=== PATIENT | male | born 1965 | race Caucasian/White ===

== ENCOUNTER 2021-11-05 16:43 | Emergency (ER) | payer OTHER, SELFPAY ==
--- NOTE | 2021-11-05 16:52 | ED.SKABFB ---
HPI - Skin/Abscess/Foreign Bdy General Chief complaint: Skin/Abscess/Foreign Body Stated complaint: stung by bee Time Seen by Provider: 11/05/21 16:54 Source: patient and RN notes reviewed Mode of arrival: ambulatory Limitations: no limitations History of Present Illness HPI narrative: 55-year-old male presents to the [facility] with complaints of being stung by a bee this am. Since being stung around 8am the area has swollen and become red. Patient states that he was riding his bike, stinger not present. Wound to the anterior portion of the shoulder. patient has taken Benadryl at about 1:00 today. Patient denies any trouble breathing, no facial, tongue or lip swelling. No chest pain or abdominal pain. Related Data Home Medications Medication Instructions Recorded Confirmed doxycycline monohydrate 40 mg 40 mg PO DIRECTED 11/05/21 11/05/21 capsule,immediate - delay release (Oracea) metronidazole 0.75 % topical gel 0.75 applic topical DIRECTED 11/05/21 11/05/21 Allergies Allergy/AdvReac Type Severity Reaction Status Date / Time No Known Allergies Allergy Verified 11/05/21 16:48 Review of Systems Review of Systems: All systems reviewed & are unremarkable except as noted in HPI and below Constitutional: Constitutional: Reports no additional constitutional complaints, Denies chills and Denies fever(s) Eyes: Eyes: Reports no additional eye complaints ENT: Reports system reviewed and no additional complaints, except as documented Cardiovascular: Cardiovascular: Reports no additional cardiovascular complaints Respiratory: Respiratory: Reports no additional respiratory complaints Gastrointestinal: Gastrointestinal: Reports no additional gastrointestinal complaints Musculoskeletal: Musculoskeletal: Reports no additional musculoskeletal complaints Integumentary/Breasts: Skin/Breast: Reports as per HPI and Reports erythema (Left upper arm) Neurologic: Reports system reviewed and no additional complaints, except as documented Psychiatric: Psychiatric: Reports no additional psychiatric complaints Allergic/Immunologic: Allergic/Immunologic: Reports no additional allergic/immunologic complaints [facility] Past Medical History Medical History (Updated 11/05/21 @ 19:06 by Radha Rutherford APRN) Rosacea Surgical History Surgical History H/O colonoscopy rectal polyp/ dr. carmona/ 01-22-19/ repeat in 5 yrs Family History Family History Other No family history of cardiovascular disease Social History Social History Alcohol intake: current Comments At the time of my signature, I reviewed and agree with the nursing past medical, surgical, social, and family history. There is no relevant family history pertinent to the patient complaint. Exam Const: General: healthy appearing, no acute distress and alert Nutritional Appearance: well nourished Orientation/consciousness: patient oriented x3 Limitations: no limitations HENMT: Head: normal to inspection Ears: external ears normal General nose exam: Normal external nose present Mouth: Yes Normal oral and palatal mucosa present, Yes lip normal and Yes moist mucous membranes Eyes: General: appearance normal, both eyes and all related structures Pupils: Equal, round and reactive pupils present Neck: Neck: normal visual inspection, no lymphadenopathy and no meningeal signs Chest: Chest palpation & inspection: normal inspection of the chest Resp: Effort & Inspection: normal respiratory effort and no use of accessory muscles Auscultation: clear to auscultation bilaterally, no crackles, no rales, no rhonchi and no wheezes Cardio: Rate: regular rate Rhythm: regular rhythm GI: GI Palp: Yes Soft to palpation and No Tenderness to palpation present (GI) Back/Spine/Pelvis: Cervical Spine: norm
[2021-11-05 16:54] VITALS: BP 98/71; PULSE 66; RESP 14; TEMP 37.3; O2SAT 99
[2021-11-05] MEDS: FAMOTIDINE 20 MG TABLET PO (17:05)
[2021-11-05] MEDS: predniSONE 20 MG TABLET 60 MG PO (17:05)
== END 2021-11-05 17:27 | disposition home or self-care (01) ==
PROVIDERS: Emergency Provider Nurse Practitioner; PCP Family Medicine
DX: T63.441A Toxic effect of venom of bees, accidental (unintentional), initial encounter (principal); E78.00 Pure hypercholesterolemia, unspecified
CPT/HCPCS: 99213; A9270; G0463; J7512

== ENCOUNTER 2022-03-22 08:44 | Outpatient (CLI) | payer OTHER, SELFPAY ==
[2022-03-22 18:29] LABS: Alanine Aminotransferase 27 U/L (6-50); Albumin Level 4.5 g/dL (3.5-5.1); Alkaline Phosphatase 53 U/L (38-126); Anion Gap 5 mmol/L (8-16); Aspartate Amino Transferase 46 U/L (17-59); Blood Urea Nitrogen 22 mg/dL (9-20); Calcium 9.5 mg/dL (8.4-10.2); Carbon Dioxide 31 mmol/L (22-30); Chloride 104 mmol/L (98-107); Cholesterol 236 mg/dL (0-200); Estimated Glomerular Filt Rate > 60; Glucose 94 mg/dL (65-110); HDL Direct 55 mg/dL; Potassium 5.4 mmol/L (3.4-5.0); Sodium 140 mmol/L (137-145); Triglycerides 175 mg/dL (<150)
[2022-03-22 18:41] LABS: LDL Cholesterol Direct 110 mg/dL
[2022-03-22 18:58] LABS: Prostate Specific Antigen 0.5 ng/mL (< OR = 4.0)
== END 2022-03-22 08:45 | disposition home or self-care (01) ==
LOC: ANHGOSHLAB 08:47
PROVIDERS: PCP Family Medicine; Visit Provider Family Medicine
DX: E78.2 Mixed hyperlipidemia (principal); Z00.8 Encounter for other general examination; Z12.5 Encounter for screening for malignant neoplasm of prostate
CPT/HCPCS: 36415; 80053; 80061; 84153; G0103

== ENCOUNTER 2023-07-04 08:20 | Outpatient (CLI) | payer OTHER, SELFPAY ==
[2023-07-04 13:15] LABS: Alanine Aminotransferase 22 U/L (6-50); Albumin Level 4.7 g/dL (3.5-5.1); Alkaline Phosphatase 58 U/L (38-126); Anion Gap 7 mmol/L (4-12); Aspartate Amino Transferase 42 U/L (17-59); Bilirubin,Total 0.7 mg/dL (0.2-1.3); Blood Urea Nitrogen 29 mg/dL (9-20); Calcium 9.9 mg/dL (8.4-10.2); Carbon Dioxide 28 mmol/L (22-30); Chloride 105 mmol/L (98-107); Cholesterol 217 mg/dL (0-200); Estimated Glomerular Filt Rate > 60; Glucose 104 mg/dL (65-110); HDL Direct 58 mg/dL; Potassium 4.9 mmol/L (3.4-5.0); Sodium 140 mmol/L (137-145); Triglycerides 100 mg/dL (<150)
[2023-07-04 13:27] LABS: LDL Cholesterol Direct 128 mg/dL
[2023-07-04 13:43] LABS: Prostate Specific Antigen 0.6 ng/mL (< OR = 4.0)
== END 2023-07-04 08:21 | disposition home or self-care (01) ==
LOC: ANHGOSHLAB 08:21
PROVIDERS: PCP Family Medicine; Visit Provider Family Medicine
DX: E78.2 Mixed hyperlipidemia (principal); Z12.5 Encounter for screening for malignant neoplasm of prostate; Z00.8 Encounter for other general examination
CPT/HCPCS: 36415; 80053; 80061; 84153; G0103

== ENCOUNTER 2024-05-21 08:53 | Outpatient (CLI) | payer OTHER, SELFPAY ==
--- OUTSIDE RECORDS SUMMARY | 2024-05-21 09:33 | XMS_ITS | Referral Summary ---
Author Organization [facility] Address [address] [place] [address] Care Team Providers Care Armament Installer Name Role Phone Kishore Arellano MD Primary Care Provider [phone] [phone] Allergies No known active allergies Medications ketoconazole (NIZORAL) 2 % creamIndications :Tinea cruris Apply topically 2 (two) times a day as needed (for rash on thigh) 30 g 11 3 Active doxycycline (ORACEA) 40 mg capsuleIndicatio ns:Rosacea, unspecified Take 1 capsule (40 mg total) by mouth every morning 30 capsule 11 4 Active azelaic acid 15 % gelIndications:A cne Rosacea Apply 1 applicator topically 2 (two) times a day After skin is thoroughly washed and patted dry, gently but thoroughly massage a thin film of azelaic acid cream into the affected area twice daily, in the morning and evening. 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
--- OUTSIDE RECORDS SUMMARY | 2024-05-21 09:33 | XMS_ITS | Clinical Summary ---
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 Gender Identity Male 09/07/2022 1:05 PM CDT Sexual Orientation Straight 09/07/2022 1: 05 PM CDT Obstetrics History Plan of Treatment Health Maintenance Due Date Last Done Comments Colon Cancer Screening-Colonoscopy 1965 Depression Screening 1965 Hepatitis C Screening 1965 Prostate Cancer Screening-PSA 1965 Hepatitis B Screening 11/22/1983 Regular Well Visit/Exam 18-64 11/22/1983 Zoster Vaccine (1 of 2) 11/22/2015 Covid-19 Vaccine (3 - 2023-2 5 season) 2023 07/20/2020, 06/28/2020 Influenza Vaccine (#1) 2023 , 03/11/2020, 12/12/2018 DTaP/Tdap/Td Vaccine (2 - Td or Tdap) 12/12/2028 12/12/2018 Pneumococcal vaccine <65 Aged Out No longer eligible based on patient's age to complete this topic Insurance [facility] OPTIONS PPO Care Teams General Merchandise Manager Relationship Specialty Start Date End Date Kishore Arellano MD PCP - General Family Medicine 02/06/19
[2024-05-21 10:39] LABS: Basophils Percent Auto 0.7 % (0.2-1.2); Eosinophils Absolute Auto 0.4 K/mm3 (0-0.3); Eosinophils Percent Auto 5.8 % (0-4.4); Hematocrit 42.1 % (42.0-52.0); Hemoglobin 13.7 g/dL (14.0-18.0); Immature Granulocyte Absolute 0.01 K/mm3 (0.00-0.031); Immature Granulocyte Percent A 0.2 % (0-0.5); Lymphocytes Percent Auto 44.6 % (18.3-44.2); Mean Corpuscular HGB Conc 32.5 g/dl (32-36); Mean Corpuscular Hemoglobin 30.7 pg (26-34); Mean Corpuscular Volume 94.4 fl (80-100); Mean Platelet Volume 9.7 fl (7.4-10.4); Monocytes Absolute Auto 0.6 K/mm3 (0.1-0.6); Monocytes Percent Auto 9.4 % (2.6-8.5); Neutrophils Absolute Auto 2.4 K/mm3 (1.3-6.7); Neutrophils Percent Auto 39.3 % (45.5-73.1); Platelet Count Result 178 k/mm3 (150-375); Red Blood Count 4.46 M/mm3 (4.6-6.20); Red Cell Distribution Width 12.4 % (11.5-14.5); White Blood Count 6.1 K/mm3 (4.5-10.0)
[2024-05-21 12:03] LABS: Alanine Aminotransferase 31 U/L (6-50); Albumin Level 4.4 g/dL (3.5-5.1); Alkaline Phosphatase 51 U/L (38-126); Anion Gap 9 mmol/L (4-12); Aspartate Amino Transferase 43 U/L (17-59); Bilirubin,Total 0.9 mg/dL (0.2-1.3); Blood Urea Nitrogen 20 mg/dL (9-20); Calcium 9.4 mg/dL (8.4-10.2); Carbon Dioxide 28 mmol/L (22-30); Chloride 103 mmol/L (98-107); Cholesterol 252 mg/dL (0-200); Estimated Glomerular Filt Rate > 60; Glucose 92 mg/dL (65-110); HDL Direct 61 mg/dL; Potassium 4.4 mmol/L (3.4-5.0); Sodium 140 mmol/L (137-145); Triglycerides 102 mg/dL (<150)
[2024-05-21 12:14] LABS: LDL Cholesterol Direct 131 mg/dL
[2024-05-21 12:32] LABS: Prostate Specific Antigen 0.6 ng/mL (< OR = 4.0)
== END 2024-05-21 08:54 | disposition home or self-care (01) ==
LOC: ANHGOSHLAB 08:56
PROVIDERS: PCP Family Medicine; Visit Provider Family Medicine
DX: Z12.5 Encounter for screening for malignant neoplasm of prostate (principal); Z00.00 Encounter for general adult medical examination without abnormal findings
CPT/HCPCS: 36415; 80053; 80061; 84153; 85025; G0103

== ENCOUNTER 2024-06-20 10:58 | Outpatient (CLI) | payer OTHER, SELFPAY ==
--- OUTSIDE RECORDS SUMMARY | 2024-06-20 12:03 | XMS_ITS | Referral Summary ---
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
--- OUTSIDE RECORDS SUMMARY | 2024-06-20 12:03 | XMS_ITS | Clinical Summary ---
Author Organization [facility] Address [address] [place] [address] Care Team Providers Care Barrel Bridge Assembler Name Role Phone Kishore Arellano MD Primary Care Provider [phone] [phone] Allergies No known active allergies Medications ketoconazole [...] on file Legal Sex Male 9:54 AM MATH SPECIALIST Gender Identity Male 09/07/2022 1:05 PM CDT [...] patient's age to complete this topic Insurance [facility] OPTIONS PPO Care Teams Barrel Bridge Assembler Relationship Specialty Start Date End Date Kishore Arellano MD PCP - General Family Medicine 02/06/19
== END 2024-06-20 10:59 | disposition home or self-care (01) ==
LOC: ANHGOSHLAB 11:00
PROVIDERS: PCP Family Medicine; Visit Provider Family Medicine
DX: E78.2 Mixed hyperlipidemia (principal)
CPT/HCPCS: 36415

== ENCOUNTER 2024-08-21 02:17 | Day surgery (SDC) | payer OTHER, SELFPAY ==
[2024-08-11 13:02] VITALS: BMI 26.4
--- OUTSIDE RECORDS SUMMARY | 2024-08-21 02:20 | XMS_ITS | Clinical Summary ---
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 Gender Identity Male 09/07/2022 1:05 PM CDT [...] 5 season) 2023 07/20/2020, 06/28/2020 Influenza Vaccine (Season Ended) 2024 03/16/2021, 03/11/2020, 12/12/2018 DTaP/Tdap/Td Vaccine (2 - Td or Tdap) 12/12/2028 12/12/2018 Pneumococcal vaccine <65 Aged Out No longer eligible based on patient's age to complete this topic Insurance [facility] OPTIONS PPO [facility] HMO/PPO Address: [facility] [address] [place] [address] Care Teams International Representative Relationship Specialty Start Date End Date Kishore Arellano MD PCP - General Family Medicine 02/06/19
--- OUTSIDE RECORDS SUMMARY | 2024-08-21 02:20 | XMS_ITS | Referral Summary ---
Author Organization [facility] Address [address] [place] [address] Care Team Providers Care Grill Attendant Name Role Phone Kishore Arellano MD Primary Care Provider [phone] [phone] Allergies No known active allergies Medications ketoconazole [...] on file Legal Sex Male 9:54 AM FRONT DESK HOST Gender Identity Male 09/07/2022 1:05 PM CDT Sexual Orientation Straight 09/07/2022 1: 05 PM CDT Plan of Treatment Not on file Insurance [employer] PPO Care Teams Grill Attendant Relationship Specialty Start Date End Date Kishore Arellano MD PCP - General Family Medicine 02/06/19
[2024-08-21 10:15] VITALS: BP 127/69; PULSE 53; RESP 12; TEMP 36.1; O2SAT 97; BMI 26.0
[2024-08-21] MEDS: LACTATED RINGERS 1,000 ML 150 ML IV CONT (10:30)
--- NOTE | 2024-08-21 10:51 | WPDANESEPPF ---
Anes - Initial Pre Proc Eval Procedure: Operation Date: 08/21/24 11:30 Proposed Procedures p Screening Colonoscopy - Juan A Rios MD Date/Time: 08/21/24 10:51 Surgeon: Juan A Rios MD Pre Op Diagnosis: Hx of polyps Patient Data Age: 58 Gender: M Height: 1.83 m Weight: 87.2 kg Last Vital Signs Temp 97.0 F L 08/21/24 10:15 Pulse 53 L 08/21/24 10:15 Resp 12 08/21/24 10:15 BP 127/69 08/21/24 10:15 Pulse Ox 97 08/21/24 10:15 O2 Del Method Room Air 08/21/24 10:15 Allergies Allergy/AdvReac Type Severity Reaction Status Date / Time No Known Allergies Allergy Verified 08/21/24 10:20 Home Medications ?Medication ?Instructions ?Recorded ?Confirmed ?Type doxycycline monohydrate 40 mg 40 mg PO DIRECTED 11/05/21 08/21/24 History capsule,immediate - delay release (Oracea) atorvastatin 10 mg tablet (Lipitor) 10 mg PO DAILY #90 tabs 07/03/24 08/21/24 Rx Patient hx anesthesia problems: none Family hx anesthesia problems: none Results Review: All pre-operative results and documents have been reviewed as part of the pre-operative evaluation. [facility]LY [facility] Past Medical History Medical History Diastasis of rectus abdominis Epididymitis, right Chalazion left eye, unspecified eyelid Rosacea Surgical History Surgical History H/O colonoscopy rectal polyp/ dr. carmona/ 01-22-19/ repeat in 5 yrs Family History Family History Other No family history of cardiovascular disease Social History Social History (Updated 05/01/24 @ 13:30 by Kelsie De La Rosa MA) Smoking status: Never smoker Alcohol intake: current Drinks per week: 6 Substance use: never Substance use type: does not use Do You Feel Safe in your Home?: No Lack of Transportation: No Lack of Food: Never True Current Housing: I Have Housing Concerned About Future Housing: No Difficulty Paying Gas/Electric Bills: No Difficulty Paying for Meds: No Currently Unemployed: No Education: Master's Degree or Higher Difficulty w/ Childcare or Family Care: No Living arrangements: with family Spiritual care concerns: No Anes - Eval Final PreProcedure Day of Procedure 08/21/24 10:51 Patient weight: normal Heart: regular rate and rhythm Lungs: clear to auscultation Airway: Mallampati scale class II Neurological: alert and oriented Last oral intake: >/= 8 hours ASA classification: II Emergent: no Anesthetic plan: proceed Anesthesia type and monitoring: general GIVS and standard monitoring Results Review: All pre-operative results and documents have been reviewed as part of the pre-operative evaluation. Informed Consent: The patient's anesthetic plan and its attendant risks and benefits were discussed with the patient/family/POA. Questions were solicited and answers provided to the satisfaction of the patient/family/POA.
--- NOTE | 2024-08-21 10:52 | PM.IMHP ---
H&P: HPI History of Present Illness Date/Time: 08/21/24 10:52 Chief Complaint: History of colon polyps Narrative: The patient has a history of colonic polyps, the last colonoscopy was 5 years ago Review of Systems Review of Systems: All systems reviewed & are unremarkable except as noted in HPI and below PMFSH Past Medical History Medical History Diastasis of rectus abdominis Epididymitis, right Chalazion left eye, unspecified eyelid Rosacea Surgical History Surgical History H/O colonoscopy rectal polyp/ dr. carmona/ 01-22-19/ repeat in 5 yrs Family History Family History Other No family history of cardiovascular disease Social History Social History (Updated 05/01/24 @ 13:30 by Kelsie De La Rosa MA) Smoking status: Never smoker Alcohol intake: current Drinks per week: 6 Substance use: never Substance use type: does not use Do You Feel Safe in your Home?: No Lack of Transportation: No Lack of Food: Never True Current Housing: I Have Housing Concerned About Future Housing: No Difficulty Paying Gas/Electric Bills: No Difficulty Paying for Meds: No Currently Unemployed: No Education: Master's Degree or Higher Difficulty w/ Childcare or Family Care: No Living arrangements: with family Spiritual care concerns: No Meds Home Medications and Allergies Home Medications ?Medication ?Instructions ?Recorded ?Confirmed ?Type doxycycline monohydrate 40 mg 40 mg PO DIRECTED 11/05/21 08/21/24 History capsule,immediate - delay release (Oracea) atorvastatin 10 mg tablet (Lipitor) 10 mg PO DAILY #90 tabs 07/03/24 08/21/24 Rx Allergies Allergy/AdvReac Type Severity Reaction Status Date / Time No Known Allergies Allergy Verified 08/21/24 10:20 Vital Signs Vital Signs - 24 hr 08/21/24 10:15 Temperature 97.0 F L Pulse Rate 53 L Respiratory Rate 12 Blood Pressure 127/69 Pulse Oximetry 97 Oxygen Delivery Room Air Exam Const: General: cooperative and healthy appearing Resp: Effort & Inspection: normal respiratory effort and able to speak in complete sentences Auscultation: clear to auscultation bilaterally Cardio: Rate: regular rate Rhythm: regular rhythm GI: Inspection: normal to inspection GI Palp: No No hepatosplenomegaly present Auscultation: normal bowel sounds Rectal Exam: deferred Skin: General skin exam: normal color Psych: Appearance: grossly normal Mental Status: mental status grossly normal Assessment and Plan Assessment and plan (1) History of colonic polyps: Code(s): Z86.0100 - Personal history of colon polyps, unspecified Status: Acute Assessment and Plan: The patient is deemed a good candidate for the procedure. Consent signed. Will proceed.
[2024-08-21 11:11] VITALS: BP 96/58; PULSE 61; RESP 20; O2SAT 96
[2024-08-21 11:21] VITALS: BP 100/65; PULSE 50; RESP 20; O2SAT 97
[2024-08-21 11:31] VITALS: BP 103/70; PULSE 54; RESP 16; O2SAT 96
== END 2024-08-21 11:45 | disposition home or self-care (01) ==
PROVIDERS: PCP Family Medicine; Referring Provider Family Medicine; Visit Provider Internal Medicine Gastroenterology
PROC: 0DJD8ZZ Inspection of Lower Intestinal Tract, Via Natural or Artificial Opening Endoscopic (ICD-10-PCS; CPT 45378; principal; 2024-08-21 11:30)
DX: Z12.11 Encounter for screening for malignant neoplasm of colon (principal); Z86.0100 Personal history of colon polyps, unspecified
CPT/HCPCS: 45378; J2003; J2704; J7120

== ENCOUNTER 2024-11-05 09:58 | Outpatient (CLI) | payer OTHER, SELFPAY ==
--- OUTSIDE RECORDS SUMMARY | 2024-11-05 10:08 | XMS_ITS | Clinical Summary ---
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 OPTIONS PPO [facility] HMO/PPO Address: [facility] [address] [place] [address] Care Teams Location Man Relationship Specialty Start Date End Date Kishore Arellano MD PCP - General Family Medicine 02/06/19
[2024-11-05 13:32] LABS: Alanine Aminotransferase 37 U/L (6-50); Albumin Level 4.4 g/dL (3.5-5.1); Alkaline Phosphatase 57 U/L (38-126); Anion Gap 7 mmol/L (4-12); Aspartate Amino Transferase 72 U/L (17-59); Bilirubin,Total 0.3 mg/dL (0.2-1.3); Blood Urea Nitrogen 18 mg/dL (9-20); Calcium 9.3 mg/dL (8.4-10.2); Carbon Dioxide 26 mmol/L (22-30); Chloride 104 mmol/L (98-107); Cholesterol 225 mg/dL (0-200); Estimated Glomerular Filt Rate > 60; Glucose 85 mg/dL (65-110); Potassium 5.0 mmol/L (3.4-5.0); Sodium 137 mmol/L (137-145); Total Protein 7.5 g/dL (6.3-8.2)
[2024-11-05 13:50] LABS: Triglycerides 720 mg/dL (<150)
== END 2024-11-05 09:59 | disposition home or self-care (01) ==
LOC: ANHGOSHLAB 09:59
PROVIDERS: PCP Family Medicine; Visit Provider Family Medicine
DX: E78.2 Mixed hyperlipidemia (principal)
CPT/HCPCS: 36415; 80053; 80061

== ENCOUNTER 2024-11-19 08:05 | Outpatient (CLI) | payer OTHER, SELFPAY ==
--- OUTSIDE RECORDS SUMMARY | 2024-11-19 08:09 | XMS_ITS | Clinical Summary ---
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
[2024-11-19 15:55] LABS: Cholesterol 216 mg/dL (0-200); HDL Direct 62 mg/dL; Triglycerides 156 mg/dL (<150)
[2024-11-19 16:32] LABS: Thyroid Stimulating Hormone 1.120 uIU/mL (0.465-4.680)
[2024-11-19 17:58] LABS: Hemoglobin A1C 5.8 % (<5.7)
== END 2024-11-19 08:06 | disposition home or self-care (01) ==
LOC: ANHGOSHLAB 08:06
PROVIDERS: PCP Family Medicine; Visit Provider Family Medicine
DX: E78.1 Pure hyperglyceridemia (principal)
CPT/HCPCS: 36415; 80061; 83036; 84443